=== PATIENT | male | born 1955 | race Caucasian/White ===

== ENCOUNTER 2016-08-10 19:12 | Emergency (ER) | payer OTHER ==
[2016-08-10] MEDS ORDERED: KETOROLAC TROMETHAMINE 60 MG/2 ML VIAL IM ONE (19:20)
[2016-08-10] MEDS ORDERED: NALBUPHINE HCL 10 MG/1 ML IM ONE (19:20)
[2016-08-10] MEDS ORDERED: LORazepam 2 MG/ML VIAL IM ONE (19:31)
[2016-08-10] MEDS ORDERED: HYDROcodone /APAP 5/325 1 EACH TABLET PO ONE (19:57)
[2016-08-10] MEDS ORDERED: BACLOFEN 10 MG TABLET PO PRN (20:03)
[2016-08-10 20:13] VITALS: BP 127/79
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
== END 2016-08-10 20:05 | disposition home or self-care (01) ==
LOC: ED 19:12
DX: M54.42 Lumbago with sciatica, left side (principal); F41.9 Anxiety disorder, unspecified
CPT/HCPCS: J1885; J2060; J2300; 96372; 99283

== ENCOUNTER 2016-10-01 08:04 | Outpatient (CLI) | payer OTHER ==
[2016-10-01 09:11] LABS: eGFR (African) > 60; eGFR (Non-African) > 60
== END 2016-10-01 08:05 ==
LOC: LAB 08:04
PROVIDERS: ATTEND Family Medicine
DX: E78.2 Mixed hyperlipidemia (principal); E03.9 Hypothyroidism, unspecified
CPT/HCPCS: 36415; 80053; 80061; 84443

== ENCOUNTER 2016-10-01 15:37 | Outpatient (CLI) | payer OTHER | END 2016-10-01 15:40 | LOC: RT 15:37 | PROVIDERS: ATTEND Family Medicine | DX: R00.2 Palpitations (principal) ==

== ENCOUNTER 2017-05-28 09:16 | Outpatient (CLI) | payer OTHER ==
[2017-05-28 09:50] LABS: eGFR (African) > 60; eGFR (Non-African) > 60
== END 2017-05-28 09:17 ==
LOC: LAB 09:16
PROVIDERS: ATTEND Family Medicine
DX: E78.2 Mixed hyperlipidemia (principal)
CPT/HCPCS: 36415; 80053; 80061

== ENCOUNTER 2017-08-06 08:48 | Outpatient (CLI) | payer OTHER ==
[2017-08-06 09:08] LABS: MEAN CORPUSCULAR HEMOGLOBIN 29.6 pg (28.0-34.0); MEAN CORPUSCULAR VOLUME 89.2 fl (80.0-100.0)
[2017-08-06 10:10] LABS: eGFR (African) > 60; eGFR (Non-African) > 60
== END 2017-08-06 08:50 ==
LOC: LAB 08:48
PROVIDERS: ATTEND Family Medicine
DX: E78.2 Mixed hyperlipidemia (principal); R63.4 Abnormal weight loss
CPT/HCPCS: 36415; 80053; 80061; 84443; 85027

== ENCOUNTER 2017-08-21 08:19 | Day surgery (SDC) | payer OTHER ==
--- NOTE | 2017-08-22 15:12 | Operative Note ---
SURGEON: Anselmo Peterson MD ANESTHESIA: MAC anesthesia. ESTIMATED BLOOD LOSS: None. COMPLICATIONS: None. FINDINGS: Sigmoid diverticulosis. No evidence of inflammation. No other lesions were seen. PREOPERATIVE DIAGNOSIS: Screening colonoscopy. POSTOPERATIVE DIAGNOSIS: Sigmoid diverticulosis. PROCEDURE PERFORMED: Colonoscopy to cecum. INDICATIONS: This is a 62-year-old man who presents for a screening colonoscopy. DESCRIPTION OF PROCEDURE: Patient was brought to the endoscopy suite and placed in the left lateral decubitus position. A rectal exam was performed which was normal. The colonoscope was inserted and passed easily to the cecum. The prep was good. The appendiceal orifice and ileocecal valve were identified. The colonoscope was slowly retracted being careful to inspect all macdonald. There was a greater than a 6 minute withdrawal time. There was extensive sigmoid diverticulosis with no evidence of acute inflammation. There were no other lesions seen. The colonoscope was removed. The patient tolerated the procedure well. DISPOSITION: I recommend a repeat colonoscopy in 5 years. cc: Dr. Amalia HUSAIN
== END 2017-08-21 08:20 ==
LOC: OPSURG 08:19
PROVIDERS: ATTEND Colon & Rectal Surgery
DX: Z12.11 Encounter for screening for malignant neoplasm of colon (principal); K57.30 Diverticulosis of large intestine without perforation or abscess without bleeding; F17.210 Nicotine dependence, cigarettes, uncomplicated; Z80.9 Family history of malignant neoplasm, unspecified
CPT/HCPCS: 45378; J2704; J7120; S1016

== ENCOUNTER 2017-10-27 10:09 | Outpatient (CLI) | payer OTHER ==
[2017-10-27 10:24] LABS: BASOPHILS % 0.7 (0.0-1.5); EOSINOPHILS % 5.5 % (0.0-6.8); MEAN CORPUSCULAR HEMOGLOBIN 30.6 pg (28.0-34.0); MEAN CORPUSCULAR VOLUME 91.1 fl (80.0-100.0); MONOCYTES % 3.7 % (0.0-11.0); NEUTROPHILS # 2.4 # k/uL (1.4-7.7)
--- NOTE | 2017-10-27 10:46 | Diagnostic Imaging Report ---
THEO LOPEZ [facility] [id number] [facility] [address] [place], [place]. [address] Report Submission Date: Oct 27, 2017 10:42:27 AM CDT Patient Study Name: PEG PAINTER Date: Oct 27, 2017 10:18:55 AM CDT Modality Type: DX Gender: M Description: CHEST : 51 Institution: [facility] Physician: THEO LOPEZ Examination: PA and lateral chest. History: PT C/O DRY COUGH X 2.5 WEEKS. PT REPORTS THAT HE HAS NO HEART OR LUNG CONDITIONS. NO PRIOR CHEST SURGERY. (Hx) Comparison exam: None provided. Findings: PA lateral chest demonstrate a normal cardiac and mediastinal silhouette. Hilar granuloma. No focal infiltrate. No blunting of the costophrenic margins. Mild articular degenerative changes. Impression: No acute pulmonary process. Electronically signed on Oct 27, 2017 10:42:27 AM CDT by: Preston HUSAIN
== END 2017-10-27 10:10 ==
LOC: LAB 10:09
PROVIDERS: ATTEND Family Medicine
DX: R05 Cough (principal); Z12.5 Encounter for screening for malignant neoplasm of prostate; D70.9 Neutropenia, unspecified
CPT/HCPCS: 36415; 71046; 85025; G0103

== ENCOUNTER 2018-08-19 15:53 | Outpatient (CLI) | payer OTHER ==
[2018-08-19 16:47] LABS: BASOPHILS % 0.9 (0.0-1.5); EOSINOPHILS % 2.1 % (0.0-6.8); NEUTROPHILS # 4.3 # k/uL (1.4-7.7)
[2018-08-19 17:07] LABS: eGFR (Non-African) > 60
== END 2018-08-19 15:55 ==
LOC: LAB 15:53
PROVIDERS: ATTEND Dermatology
DX: D69.0 Allergic purpura (principal)
CPT/HCPCS: 36415; 80053; 80074; 82955; 85025; 85651; 86038; 86160; 86162; 86431; 86703